=== PATIENT | male | born 1970 | race Caucasian/White ===

== ENCOUNTER 2018-01-25 18:09 | Emergency (ER) | payer OTHER ==
[~2018-01-25] VITALS: Ht 177.8 cm; Wt 116.3 kg
[~2018-01-25 18:09] MED LIST: COZAAR 25 MG TA25 M1 PO; HYDROCODONE-AP1 EAC6 PO; LISINOPRIL10 MG PO
[2018-01-25] MEDS ORDERED: AMLODIPINE BESY10 MG PO (18:27)
[2018-01-25 18:55] LABS: ABSOLUTE EOSINOPHILS 0.2 thou/uL (0.0-0.7); ABSOLUTE LYMPHOCYTES 2.4 thou/uL (0.8-5.3); ABSOLUTE MONOCYTES 0.7 thou/uL (0.0-1.2); ABSOLUTE NEUTROPHILS 4.7 thou/uL (1.6-8.1); BASOPHILS 0.6 %; EOSINOPHILS 1.9 %; HEMATOCRIT 50.7 % (42.0-52.0); HEMOGLOBIN 17.7 gm/dL (14.0-18.0); LYMPHOCYTES 30.4 %; MCH 31.5 pg (26.0-34.0); MCHC 34.9 g/dL (28.0-37.0); MCV 90.5 fL (80.0-100.0); MONOCYTES 8.6 %; NUCLEATED RBCS 0 /100WBC; PLATELET COUNT* 160 thou/uL (150-400); POLYS 58.5 %; RDW-CV 13.5 % (10.5-14.5); WBC 8.1 thou/uL (4.0-11.0)
[2018-01-25 19:17] LABS: INFLUENZA A ANTIGEN None Detected (None Detect); INFLUENZA B ANTIGEN None Detected (None Detect)
[2018-01-25 19:27] LABS: CALCIUM 9.1 mg/dL (8.5-10.1); CREATININE 1.6 mg/dL (0.6-1.3); POTASSIUM 3.6 mmol/L (3.5-5.1)
[2018-01-25 19:32] LABS: ALBUMIN 4.3 g/dL (3.4-5.0); TOTAL BILIRUBIN 1.1 mg/dL (<0.1-1.0); TOTAL PROTEIN 7.9 g/dL (6.4-8.2)
[2018-01-25 19:55] LABS: URINE BILIRUBIN NEGATIVE (Negative); URINE BLOOD TRACE (Negative); URINE CLARITY CLEAR; URINE COLOR YELLOW; URINE GLUCOSE-RANDOM NEGATIVE (Negative); URINE KETONES 1+ (Negative); URINE LEUKOCYTES-REFLEX NEGATIVE (Negative); URINE NITRITE-REFLEX NEGATIVE (Negative); URINE PROTEIN NEGATIVE (Negative); URINE UROBILINOGEN 0.2 E.U./dl (0.2-1.0)
[2018-01-25 20:33] LABS: TROPONIN-I LEVEL <0.06 ng/mL (<0.06)
[2018-01-25] MEDS ORDERED: LISINOPRIL-HCT1 EACH PO (20:47)
[2018-01-25 20:51] LABS: NT-PRO BRAIN NAT PEPTIDE 9 pg/mL (<300)
[2018-01-25 20:58] VITALS: BP 140/99
--- NOTE | 2018-01-27 14:55 | EKG ---
[place] [address] ELECTROCARDIOGRAM REPORT Name: LIAM YOUNG [id number] Admission: 01/25/18 Attend Phys: Discharge: 01/25/18 Date of : 70 Report #: [id number] THIS REPORT FOR: //name// [facility] ED Test Date: 2018-01-25 Test Time: 18:26:32 Pat Name: LIAM YOUNG Department: Room: Gender: M [employer] Specialist: : 1970 Requested By: Ramirez Romero Order Number: [id number] Laine MD: Derik Shipman Measurements Intervals [place] Rate: 82 P: NE: QRS: -13 QRSD: 104 T: 6 QT: 386 QTc: 451 Interpretive Statements Normal sinus rhythm Baseline artifact noted No previous ECG available for comparison Electronically Signed On 01-27-2018 14:55:38 CDT by Derik Shipman [email or web address] <ELECTRONICALLY SIGNED> By: Derik Shipman MD, [facility] 01/27/18 1455 1826 1826 Derik Shipman MD, FACC /EPI
--- NOTE | 2018-01-27 14:55 | EKG ---
[place] [address] ELECTROCARDIOGRAM REPORT Name: LIAM YOUNG [id number] Admission: 01/25/18 Attend Phys: Discharge: 01/25/18 Date of : 70 Report #: [id number] THIS REPORT FOR: //name// [facility] ED Test Date: 2018-01-25 Test Time: 18:25:50 Pat Name: LIAM YOUNG Department: Room: Gender: M [employer] Controller: : 1970 Requested By: Ramirez Romero Order Number: [id number] MD: Derik Shipman Measurements Intervals [place] Rate: 76 P: [place]: QRS: -14 QRSD: 104 T: 10 QT: 394 QTc: 444 Interpretive Statements Normal sinus rhythm Baseline wander in lead(s) V3 No previous ECG available for comparison Electronically Signed On 01-27-2018 14:55:19 CDT by Derik Shipman [email or web address] <ELECTRONICALLY SIGNED> By: [facility], [facility] 01/27/18 1455 1825 1825 Derik Shipman MD, FACC /EPI
== END 2018-01-25 20:59 | disposition home or self-care (01) ==
LOC: M.ERS 18:09
PROVIDERS: Family Medicine; Nurse Practitioner Family
DX: I10 Essential (primary) hypertension (principal); G47.30 Sleep apnea, unspecified